=== PATIENT | female | born 1980 | race Hispanic/Latino ===

== ENCOUNTER 2023-06-11 06:32 | Emergency (ER) | payer MEDICAID, OTHER ==
[~2023-06-11] VITALS: Ht 165.1 cm; Wt 72.6 kg
[~2023-06-11 06:32] MED LIST: PREN1TAB89 PO
[2023-06-11 06:56] LABS: APPEARANCE,URINE SL CLOUDY (CLEAR); BILIRUBIN,URINE NEGATIVE (NEGATIVE); COLOR,URINE ORANGE (YELLOW); GLUCOSE, URINE (UA) NEGATIVE (NEGATIVE); KETONES,URINE NEGATIVE (NEGATIVE); LEUKOCYTE ESTERASE ,URINE MODERATE Leu/uL (NEGATIVE); NITRATE,URINE NEGATIVE (NEGATIVE); OCCULT BLOOD,URINE LARGE (NEGATIVE); PROTEIN,URINE 100 mg/dL (NEGATIVE); UROBILINOGEN,URINE 0.2 mg/dL (0.2-1.0)
[2023-06-11 07:12] LABS: ADD UA MICROSCOPIC YES
[2023-06-11] MEDS ORDERED: FAMOTIDINE 20MG VIAL IV ONE (08:30)
[2023-06-11] MEDS ORDERED: 0.9%NACL 1000ML 1,000 ML IV ONE (08:30)
[2023-06-11] MEDS ORDERED: KETOROLAC 30MG VIAL (30MG/ML) IVP ONE (08:30)
[2023-06-11] MEDS ORDERED: METOCLOPRAMIDE 10 MG/2 ML VIAL IVP ONE (08:30)
[2023-06-11 08:33] LABS: BACTERIA,URINE Few /HPF (None Seen); RBC,URINE 51-100 /HPF (0-1)
[2023-06-11 08:47] LABS: BASOPHILS # (AUTO) 0.03 K/uL (0.00-0.20); BASOPHILS % (AUTO) 0.3 % (0.0-5.0); EOSINOPHILS # (AUTO) 0.02 K/uL (0.00-0.70); EOSINOPHILS % (AUTO) 0.2 % (0.0-8.0); HEMATOCRIT 34.9 % (36-48); IMMATURE GRANULOCYTE ABSOLUTE 0.06 K/uL (0-1); LYMPHOCYTES # (AUTO) 1.5 K/uL (1.0-4.8); LYMPHOCYTES % (AUTO) 13.7 % (21.0-51.0); MEAN CORPUSCULAR HEMOGLOBIN 27.8 pg (27.0-33.0); MEAN CORPUSCULAR HGB CONC 32.7 g/dL (32.0-36.0); MEAN CORPUSCULAR VOLUME 85.1 fL (79-99); MONOCYTES # (AUTO) 0.5 K/uL (0.1-1.0); MONOCYTES % (AUTO) 4.4 % (3.0-13.0); NEUTROPHILS % (AUTO) 80.9 % (40.0-77.0); PLATELET COUNT (AUTO) 254 K/uL (130-400); RED CELL DISTRIBUTION WIDTH 13.5 % (11.0-15.5); WHITE BLOOD COUNT (AUTO) 11.1 K/uL (4.8-10.8)
[2023-06-11 08:52] VITALS: BP 118/56; PULSE 82; RESP 18; O2SAT 98
[2023-06-11 08:58] LABS: CREATININE 0.6 mg/dL (0.5-1.5); POTASSIUM 3.8 mmol/L (3.5-5.1)
[2023-06-11 09:02] LABS: ALBUMIN 3.5 g/dL (3.5-5.0); BILIRUBIN,TOTAL 0.4 mg/dL (0.2-1.0); TOTAL PROTEIN, SERUM 7.2 g/dL (6.0-8.3)
[2023-06-11] MEDS ORDERED: POLY17PO4 PO (09:54)
[2023-06-11] MEDS ORDERED: PHEN-847 PO (09:54)
[2023-06-11] MEDS ORDERED: CEPH500B PO (09:54)
[2023-06-11] MEDS ORDERED: CEFTRIAXONE 2GM VIAL IVPB ONE (10:00)
[2023-06-11] MEDS ORDERED: LACTULOSE 20 GM/30 ML UDCUP PO ONE (10:00)
== END 2023-06-11 10:27 | disposition home or self-care (01) ==
LOC: EDH 06:32
DX: K59.00 Constipation, unspecified (principal); N12 Tubulo-interstitial nephritis, not specified as acute or chronic; Z98.890 Other specified postprocedural states
CPT/HCPCS: 99285; 74176; 96374; 96375; 96361; 84484; 80053; 83690; 85025; 87077; 87088; 87186; 81001; 81025; 36415; 93005; J3490; J7030; J0696; J1885; J2765

== ENCOUNTER 2023-12-15 13:50 | Emergency (ER) | payer OTHER ==
[~2023-12-15] VITALS: Ht 162.6 cm; Wt 73.9 kg
[~2023-12-15 13:50] MED LIST changes: +CEPH500B PO; +PHEN-847 PO; +POLY17PO4 PO
[2023-12-15] MEDS: 0.9%NACL 1000ML 1,000 ML IV ONE (14:16)
[2023-12-15] MEDS: ONDANSETRON 4MG INJ IVP ONE (14:16)
[2023-12-15] MEDS: MORPHINE 2 MG SYG IVP ONE (14:16)
[2023-12-15] MEDS: METOCLOPRAMIDE 10 MG/2 ML VIAL IVP ONE (14:16)
[2023-12-15] MEDS: LACTULOSE 20 GM/30 ML UDCUP PO ONE (14:16)
[2023-12-15] MEDS: BISACODYL 10 MG SUPP.RECT RC ONE (14:16)
[2023-12-15 14:17] LABS: BASOPHILS # (AUTO) 0.01 K/uL (0.00-0.20); BASOPHILS % (AUTO) 0.2 % (0.0-5.0); EOSINOPHILS # (AUTO) 0.03 K/uL (0.00-0.70); EOSINOPHILS % (AUTO) 0.5 % (0.0-8.0); HEMATOCRIT 33.6 % (36-48); IMMATURE GRANULOCYTE ABSOLUTE 0.01 K/uL (0-1); LYMPHOCYTES # (AUTO) 1.9 K/uL (1.0-4.8); LYMPHOCYTES % (AUTO) 32.1 % (21.0-51.0); MEAN CORPUSCULAR HEMOGLOBIN 27.3 pg (27.0-33.0); MEAN CORPUSCULAR VOLUME 82.6 fL (79-99); MONOCYTES # (AUTO) 0.3 K/uL (0.1-1.0); MONOCYTES % (AUTO) 5.2 % (3.0-13.0); NEUTROPHILS # (AUTO) 3.6 K/uL (1.8-7.7); NEUTROPHILS % (AUTO) 61.8 % (40.0-77.0); PLATELET COUNT (AUTO) 246 K/uL (130-400); RED BLOOD CELL COUNT(AUTO) 4.07 MIL/uL (4.00-5.50); RED CELL DISTRIBUTION WIDTH 14.6 % (11.0-15.5); WHITE BLOOD COUNT (AUTO) 5.8 K/uL (4.8-10.8)
[2023-12-15 14:28] LABS: CREATININE 0.6 mg/dL (0.5-1.0); POTASSIUM 3.3 mmol/L (3.5-5.1)
[2023-12-15 14:32] LABS: ALBUMIN 3.9 g/dL (3.5-5.0); BILIRUBIN,TOTAL 0.3 mg/dL (0.2-1.0); TOTAL PROTEIN, SERUM 7.4 g/dL (6.0-8.3)
[2023-12-15 14:57] LABS: APPEARANCE,URINE CLEAR (CLEAR); BILIRUBIN,URINE NEGATIVE (NEGATIVE); GLUCOSE, URINE (UA) NEGATIVE (NEGATIVE); KETONES,URINE NEGATIVE (NEGATIVE); LEUKOCYTE ESTERASE ,URINE NEGATIVE Leu/uL (NEGATIVE); NITRATE,URINE NEGATIVE (NEGATIVE); PROTEIN,URINE NEGATIVE (NEGATIVE); UROBILINOGEN,URINE 0.2 mg/dL (0.2-1.0)
[2023-12-15 14:58] LABS: ADD UA MICROSCOPIC YES; COLOR,URINE LIGHT-YELLOW (YELLOW)
[2023-12-15 14:59] LABS: RBC,URINE 0-1 /HPF (0-1); SQUAMOUS EPITHELIAL CELL,UR RARE /HPF (0-2); WBC,URINE 0-1 /HPF (0-1)
[2023-12-15 15:06] LABS: HCG,QUALITATIVE URINE NEGATIVE (NEGATIVE)
[2023-12-15] MEDS: POTASSIUM BICARB/CIT AC 25 MEQ TABLET.EFF PO ONE (15:08)
[2023-12-15] MEDS ORDERED: IOHEXOL-350 75 ML VIAL IV ONE (15:12)
[2023-12-15] MEDS ORDERED: METR-172 PO (16:34)
[2023-12-15] MEDS ORDERED: DICY20TA2 PO (16:34)
[2023-12-15 17:24] VITALS: BP 101/57; PULSE 70; RESP 18; O2SAT 99
== END 2023-12-15 17:20 | disposition home or self-care (01) ==
LOC: EDH 13:50
DX: K52.9 Noninfective gastroenteritis and colitis, unspecified (principal); K59.00 Constipation, unspecified; E86.0 Dehydration; R10.9 Unspecified abdominal pain; Z98.51 Tubal ligation status
CPT/HCPCS: 99285; 74177; 96374; 96375; 96361; 80053; 85025; 81001; 81025; 36415; J2270; J7030; J2405; J2765; Q9967